=== PATIENT | female | born 1960 | race Caucasian/White ===

== ENCOUNTER 2024-08-09 05:13 | Day surgery (SDC) | payer OTHER, BC ==
[2024-08-03 16:43] VITALS: BMI 33.3
[2024-08-09] MEDS ORDERED: MIDAZOLAM HCL 2 MG/2 ML SINGLE DOSE VIAL ONE (08:59)
[2024-08-09] MEDS ORDERED: DEXMEDETOMIDINE HCL 200 MCG/2 ML IVPB ONE (09:02)
[2024-08-09] MEDS: ceFAZolin SODIUM 1 GM VIAL IVPB ONE (09:15)
[2024-08-09] MEDS ORDERED: ceFAZolin SODIUM 1 GM VIAL ONE (09:38)
[2024-08-09] MEDS ORDERED: DEXAMETHASONE SOD PHOSPHATE 4 MG/1 ML VIAL ONE (09:38)
[2024-08-09] MEDS ORDERED: ONDANSETRON 4 MG/2 ML VIAL ONE ×2 (09:38→13:51)
[2024-08-09] MEDS ORDERED: KETOROLAC TROMETHAMINE 30 MG/1 ML VIAL ONE (09:38)
[2024-08-09] MEDS ORDERED: LIDOCAINE HCL/PF 2% SDV 5ML VIAL ONE (09:38)
[2024-08-09] MEDS ORDERED: HYDROmorphone HCl 2 MG/ML VIAL ONE (10:04)
[2024-08-09] MEDS ORDERED: NEOSTIGMINE METHYLSULFATE 0.5 MG/1 ML - 10 ML MDV ONE ×2 (10:24→10:32)
[2024-08-09] MEDS ORDERED: GLYCOPYRROLATE 0.2 MG/1 ML VIAL ONE (10:24)
[2024-08-09] MEDS: BENZOIN/ALOE VERA/STORAX/TOLU 58 ML BOTTLE TP ONE (10:28)
[2024-08-09] MEDS ORDERED: ONDANSETRON 4 MG/2 ML VIAL IVPUSH PRN (11:08)
[2024-08-09] MEDS ORDERED: LACTATED RINGERS SOLUTION 1,000 ML IV SCH (11:15)
[2024-08-09 11:31] VITALS: RESP 16
[2024-08-09] MEDS ORDERED: ACETAMINOPHEN INJECTION 100 ML ONE (11:40)
[2024-08-09] MEDS: ACETAMINOPHEN 1000 MG/100 ML BAG IVPB ONE (11:43)
[2024-08-09 14:22] VITALS: BP 111/63; PULSE 60; TEMP 97.3
== END 2024-08-09 15:00 | disposition home or self-care (01) ==
LOC: JASU-SURG 05:13
PROVIDERS: ATTEND Otolaryngology
PROC: 0CBG0ZZ Excision of Right Submaxillary Gland, Open Approach (ICD-10-PCS; principal; 2024-08-09 09:30)
DX: R22.0 Localized swelling, mass and lump, head (principal)
CPT/HCPCS: 88307-TC; 94760; J0131